=== PATIENT | male | born 1990 | race Caucasian/White ===

== ENCOUNTER 2017-10-06 07:20 | Outpatient (CLI) | payer BC ==
--- NOTE | 2017-10-06 10:11 | CT ---
CT ABDOMEN AND PELVIS WITH AND WITHOUT IV CONTRAST: (CT Enterography) Date: 10/06/17 HISTORY: Nausea, inflamed bowel seen on endoscopy, cystic fibrosis, history of partial pancreatectomy and sple nectomy, and questionable pancreatic jejunectomy. Chronic pancreatitis, nausea, and vomiting. FINDINGS: The lung bases are clear. The liver, adrenal glands, kidneys, and visualized portions of the pancreas are unremarkable. The pat ient is status post cholecystectomy, splenectomy and partial pancreatectomy. A circumaortic left shasta l vein is present. There are postop changes in the left jejunum with a dilated loop of jejunum in the left upper quadran t in the region of surgery. The remainder of the bowel loops are not abnormally dilated. A normal jacobo earing appendix is seen. No abnormal contrast enhancement or mass seen in the loops of small bowel. T he aorta is of normal caliber. No free air, free fluid, or lymphadenopathy seen in the abdomen or pel vis. No acute osseous abnormalities are identified. IMPRESSION: 1. No evidence of high grade bowel obstruction. 2. Postop changes in the abdomen. POS: MINNA
[2017-10-06] MEDS ORDERED: Iopamidol 370 76% 100 ML VIAL ONE (16:51)
== END 2017-10-06 07:21 | disposition home or self-care (01) ==
LOC: CT 07:20
PROVIDERS: ATTEND Internal Medicine
DX: K86.1 Other chronic pancreatitis (principal); R11.2 Nausea with vomiting, unspecified; Z98.890 Other specified postprocedural states
CPT/HCPCS: 74178

== ENCOUNTER 2019-12-14 12:11 | Inpatient (IN) | payer OTHER ==
[2019-12-14 12:46] LABS: #Basophils 0.1 thou/uL (0.0-0.2); #Eosinphils 0.1 thou/uL (0.0-0.7); #Lymphocytes 3.2 thou/uL (1.20-3.40); #Monocytes 1.3 thou/uL (0.11-0.59); #Neutrophils 11.8 thou/uL (1.40-6.50); %Basophils 0.6 % (0.0-1.0); %Eosinophils 0.6 % (0.0-10.0); %Lymphocytes 19.3 % (21.0-51.0); %Monocytes 7.9 % (0.0-10.0); %Neutrophils 71.6 % (42.0-75.0); Hemoglobin 15.3 g/dL (14.0-18.0); Mean Corpuscular HGB CONC 33.2 g/dL (32.0-36.0); Mean Corpuscular Hemoglobin 32.4 pg (27.0-31.0); Mean Corpuscular Volume 97.7 fL (78.0-98.0); Mean Platelet Volume 7.3 fL (7.4-10.4); Platelet Count 460 thou/uL (130-400); RBC Distribution Width 10.9 % (11.5-14.5); Red Blood Cell (RBC) Count 4.74 mill/uL (4.70-6.10); White Blood Cell (WBC) Count 16.4 thou/uL (4.8-10.8)
[2019-12-14] MEDS ORDERED: Fentanyl 100 MCG/2 ML VIAL ONE ×3 (12:55→17:14)
[2019-12-14] MEDS ORDERED: Ondansetron PF 4 MG/2 ML Vial ONE (12:55)
[2019-12-14 13:05] LABS: ALT (SGPT) 50 U/L (8-55); AST (SGOT) 20 U/L (5-34); Albumin 5.1 g/dL (3.5-5.0); Alkaline Phosphatase 82 U/L (40-110); Anion Gap 14 mmol/L (10-20); BUN (Urea Nitrogen) 12 mg/dL (8.9-20.6); Bilirubin, Total 1.4 mg/dL (0.2-1.2); Calc. Creatinine Clearance 0 mL/min (70-130); Calcium 10.4 mg/dL (7.8-10.44); Carbon Dioxide 28 mmol/L (22-29); Chloride 101 mmol/L (98-107); Estimated GFR-MDRD Greater than 90; Globulin 3.1 g/dL (2.4-3.5); Glucose 125 mg/dL (70-105); Lipase 69 U/L (8-78); Potassium 3.5 mmol/L (3.5-5.1); Protein, Total 8.2 g/dL (6.0-8.3); Sodium 139 mmol/L (136-145)
[2019-12-14] MEDS ORDERED: Promethazine HCl 25 MG/ML VIAL ONE (16:07)
[2019-12-14] MEDS ORDERED: Mag-Al 1200 mg/1200 mg/30 ML UDCUP ONE (16:20)
[2019-12-14] MEDS ORDERED: Lidocaine Viscous Sol 2% 15 ml UD Cup ONE (16:20)
[2019-12-14 17:36] LABS: Bilirubin Negative (Negative); Blood, Urine Negative (Negative); Clarity Clear (Clear); Glucose, Urine (Dipstick) Normal (Negative); Leukocyte Negative Leu/uL (Negative); Nitrite Negative (Negative); Protein, Urine (Dipstick) Negative (Neg-Trace); Urobilinogen Normal mg/dL (Less than 2)
--- NOTE | 2019-12-14 18:33 | PDOC.FPRHP ---
- History of Present Illness Chief Complaint: Abdominal pain History of Present Illness: 29 yo male with past medical history of cystic fibrosis and chronic pancreatitis presented to the emergency department with complaints of severe abdominal pain and nausea and vomiting. Patient stated that he has a history of chronic pancreatitis with greater than 20 episodes of acute pancreatitis in his past. He states the last time that he had an exacerbation of this was five years ago. Patient did have a puestow procedure performed several years ago. He states that last Wednesday he developed abdominal pain which was tolerable over the weekend however 4 days ago the abdominal pain became much worse. He contacted is GI doctor, Dr. Campbell, who stated that the patient should set up a office visit with him and go to the emergency department if it gets any worse. Last night patient stated that his abdominal pain got much worse and he was not able to tolerate any foods. Patient went to [facility] emergency department and had an abdominal CT performed which was negative for any acute abnormalities and a non elevated lipase. The patient received fluids and pain medication and was subsequently discharged. Patients pain was again worse today so he contacted Dr. Campbell who recommended he go to the emergency department here for further evaluation. Patient denies any fevers, chills, diarrhea, constipation. ED Course: Pt recieved 150mcg fentanyl, phenergan, and 2L NS - Allergies/Adverse Reactions Allergies Allergy/AdvReac Type Severity Reaction Status Date / Time adhesive Allergy Verified 12/14/19 21:35 morphine Allergy Nausea Verified 12/14/19 21:35 - Home Medications Medication Instructions Recorded Confirmed Type traMADol HCl [Tramadol HCl] 50 mg PO PRN PRN 12/15/19 12/15/19 History - History PMHx: Cystic Fibrosis, Chronic pancreatitis, common bile duct stenosis PSHx: Lateral pancreaticojejunostomy (Modified Puestow), cholecystectomy, spleenectomy, CBD stent FHx: No significant FMHx Social: Denies any tobacco, alcohol, or drug use - Review of Systems General: reports: weight/appetite/sleep changes. denies: fever/chills Eyes: denies: vision changes, other ENT: denies: nasal congestion, rhinorrhea Respiratory: denies: cough, shortness of breath Cardiovascular: denies: chest pain, edema Gastrointestinal: reports: nausea, vomiting, abdominal pain. denies: diarrhea, constipation Genitourinary: denies: dysuria, polyuria Skin: denies: rashes, lesions Musculoskeletal: reports: pain (back pain). denies: tenderness, swelling Neurological: denies: numbness, weakness - Vital signs BP: 135/92, Pulse: 80, Resp: 16, Temp: 98.0 (Oral), Pain: 5, O2 sat: 98 on ( Room Air), Wt: 80kg - Physical Exam Constitutional: NAD, awake, alert and oriented, well developed HEENT: PERRLA, EOMI, TM's clear and intact Neck: supple, FROM Heart: RRR, no edema Lungs: CTAB Abdomen: bowel sounds present, no masses/distention -Abdomen: Diffuse tenderness, worse in left upper and epigastric region Musculoskeletal: normal structure, normal tone Neurological: no focal deficit, CN II-XII intact Skin: no rash/lesions, capillary refill <2 seconds, no jaundice Heme/Lymphatic: no unusual bruising or bleeding, no purpura Psychiatric: normal mood and affect, good judgment and insight, intact recent and remote memory FMR H&P: Results - Labs Result Diagrams: 12/14/19 12:35 12/14/19 12:35 Lab results: WBC 16.4 thou/uL (4.8-10.8) H 12/14/19 12:35 Hgb 15.3 g/dL (14.0-18.0) 12/14/19 12:35 Hct 46.3 % (42.0-52.0) 12/14/19 12:35 MCV 97.7 fL (78.0-98.0) 12/14/19 12:35 Plt Count 460 thou/uL (130-400) H 12/14/19 12:35 Neutrophils % 71.6 % (42.0-75.0) 12/14/19 12:35 Sodium 139 mmol/L (136-145) 12/14/19 12:35 Potassium 3.5 mmol/L (3.5-5.1) 12/14/19 12:35 Chloride 101 mmol/L (98-107) 12/14/19 12:35 Carbon Dioxide 28 mmol/L (22-29) 12/14/19 12:35 BUN 12 mg/dL (8.9-20.6) 12/14/19 12:35 Creatinine 0.96 mg/dL (0.7-1.3) 12/14/19 12:35 Glucose 125 mg/dL (70-105) H 12/14/19 12:35 Calcium 10.4 mg/dL (7.8-10.44) 12/14/19 12:35 Total Bilirubin 1.4 mg/dL (0.2-1.2) H 12/14/19 12:35 AST 20 U/L (5-34) 12/14/19 12:35 ALT 50 U/L (8-55) 12/14/19 12:35 Alkaline Phosphatase 82 U/L (40-110) 12/14/19 12:35 Serum Total Protein 8.2 g/dL (6.0-8.3) 12/14/19 12:35 Albumin 5.1 g/dL (3.5-5.0) H 12/14/19 12:35 Lipase 69 U/L (8-78) 12/14/19 12:35 Urine Ketones 40 mg/dL (Negative) A 12/14/19 17:15 Urine Blood Negative (Negative) 12/14/19 17:15 Urine Nitrite Negative (Negative) 12/14/19 17:15 Ur Leukocyte Esterase Negative Adriana/uL (Negative) 12/14/19 17:15 FMR H&P: A/P - Problem List (1) Chronic pancreatitis Current Visit: Yes Status: Acute Code(s): K86.1 - OTHER CHRONIC PANCREATITIS Qualifiers: Pancreatitis type: other Qualified Code(s): K86.1 - Other chronic pancreatitis (2) Cystic fibrosis Current Visit: Yes Status: Acute Code(s): E84.9 - CYSTIC FIBROSIS, UNSPECIFIED (3) Hx of splenectomy Current Visit: Yes Status: Acute Code(s): Z90.81 - ACQUIRED ABSENCE OF SPLEEN (4) Intractable abdominal pain Current Visit: Yes Status: Acute Code(s): R10.9 - UNSPECIFIED ABDOMINAL PAIN (5) Nausea & vomiting Current Visit: Yes Status: Acute Code(s): R11.2 - NAUSEA WITH VOMITING, UNSPECIFIED (6) Thrombocytosis Current Visit: Yes Status: Acute Priority: Low (7) Leukocytosis Current Visit: Yes Status: Acute Code(s): D72.829 - ELEVATED WHITE BLOOD CELL COUNT, UNSPECIFIED - Plan Intractable Abdominal Pain & Nausea/Vomiting - Likely related to subclinical pancreatitis in pt w/ Hx of CF and chronic pancreatitis - Hx of Puestow procedure - Lipase 69, CT abd/pelvis @ [facility] negative for acute findings - Dr. Campbell, pt's GI physician consulted, appreciate recs - Will make NPO - tylenol, GI cocktail, and fentanyl for pain - phenergan and zofran for N/V - LR @ 150 Leukocytosis, Thrombocytosis - Hx of splenectomy - reportedly chronic per pt IVF: LR @ 150 Diet: NPO VTE: SCD and frequent ambulation Code: Full Dispo: Admit to medical inpt for pain control and PO challenging. ELOS >48hr PCP: [facility] specialist FMR H&P: Upper Level - Plan I, Lavelle Hurt DO, have evaluated this patient and agree with findings/plan as outlined by product development intern resident. Pertinent changes/additions are listed here. mr. street is a 29-year-old male with a past medical history significant for cystic fibrosis and chronic pancreatitis. He presents to the emergency room today after a visit to the outside emergency room, [facility] for abdominal pain that has been worsening. He says the pain is similar to pain he has had in the past with the pancreatitis episodes. follows with John campbell who told him to report to [place] ER. In the emergency department he was given fentanyl which improved his pain greatly. dr. campbell was consulted from the emergency department and wished the patient be admitted. On time of exam patient is experiencing minimal pain and denies nausea vomiting pre-syncope or fever. Physical exam patient is in no acute distress he has some mild tenderness to palpation over his epigastric area, moves all four extremities no distention or masses felt on abdominal exam, regular rate and rhythm even Chest will rise and fall. Plan: patient to be admitted to medical for for acute pancreatitis in the setting of chronic pancreatitis. pain control, NPO at this time with advance diet as tolerated Addendum - Attending - Attending Attestation Date/Time: 12/14/19 8380 I personally evaluated the patient and discussed the management with Dr. Dale I agree with the History, Examination, Assessment and Plan documented above with any addition or exceptions noted below -29 yo male with past medical history of cystic fibrosis and chronic pancreatitis presented to the emergency department with complaints of severe abdominal pain and nausea and vomiting. Has a history of chronic pancreatitis with greater than 20 episodes of acute pancreatitis in his past. Last episode was five years ago. Patient did have a puestow procedure performed several years ago. Developed abdominal pain which was tolerable over the weekend however 4 days ago the abdominal pain became much worse. Last night patient stated that his abdominal pain got much worse and he was not able to tolerate any foods. Patient went to [facility] emergency department and had an abdominal CT performed which was negative for any acute abnormalities and a non elevated lipase. The patient received fluids and pain medication and was subsequently discharged. Patients pain was again worse today so he contacted Dr. Campbell who recommended he go to the emergency department here for further evaluation. Patient denies any fevers, chills, diarrhea, constipation. PMH/PSH/Meds/SH reviewed and agree with resident's documentation. Afebrile VSS Exam repeated by me and agree with resident's findings. Labs: WBC= 16.4, H/H=15.3/46.3, Tsc=992, Qw=608, K=3.5, BUN/Cr=12/0.96 , Hwjw=517, lipase=69. A/P: 1) Abd Pain and intractable N/V- suspected pancreatitis - Admit to medical. Continue IVF, NPO. GI already consulted and will see patient. 2) CF- stable
[2019-12-14] MEDS ORDERED: Sodium Chloride 0.9% 1,000 ML IV SCH (19:07)
[2019-12-14] MEDS ORDERED: Ondansetron ODT 4 MG TAB SL PRN (19:07)
[2019-12-14] MEDS ORDERED: Fentanyl 100 MCG/2 ML VIAL SLOW IVP PRN ×2 (19:07→19:48)
[2019-12-14] MEDS ORDERED: Ondansetron PF 4 MG/2 ML Vial IVP PRN (19:07)
[2019-12-14] MEDS ORDERED: Acetaminophen 325 MG TAB PO PRN (19:48)
[2019-12-14] MEDS ORDERED: Lidocaine 2% Viscous Solution 20 ML, Aluminum & Magnesium Hydroxide 30 ML, Donnatal Eli... SSW PRN (19:48)
[2019-12-14] MEDS ORDERED: Promethazine HCl 25 MG/ML VIAL IM PRN (19:48)
[2019-12-14] MEDS: Lactated Ringer's 1,000 ML IV SCH (20:15)
[2019-12-14] MEDS: Fentanyl 100 MCG/2 ML VIAL SLOW IVP PRN (20:42)
[2019-12-14 21:15] VITALS: BMI 22.9
[2019-12-14] MEDS ORDERED: Ketorolac Tromethamine 30 MG/ML VIAL IVP SCH (23:15)
[2019-12-15] MEDS: Fentanyl 100 MCG/2 ML VIAL SLOW IVP PRN ×8 (03:03→22:00)
[2019-12-15] MEDS: Lactated Ringer's 1,000 ML IV SCH ×4 (03:07→22:08)
[2019-12-15 05:47] LABS: #Eosinphils 0.1 thou/uL (0.0-0.7); #Lymphocytes 3.2 thou/uL (1.20-3.40); #Monocytes 1.4 thou/uL (0.11-0.59); %Basophils 0.4 % (0.0-1.0); %Eosinophils 0.9 % (0.0-10.0); %Lymphocytes 24.9 % (21.0-51.0); %Monocytes 11.2 % (0.0-10.0); %Neutrophils 62.6 % (42.0-75.0); Hemoglobin 13.2 g/dL (14.0-18.0); Mean Corpuscular HGB CONC 33.4 g/dL (32.0-36.0); Mean Corpuscular Hemoglobin 32.9 pg (27.0-31.0); Mean Corpuscular Volume 98.6 fL (78.0-98.0); Mean Platelet Volume 7.4 fL (7.4-10.4); Platelet Count 400 thou/uL (130-400); RBC Distribution Width 10.8 % (11.5-14.5); Red Blood Cell (RBC) Count 4.02 mill/uL (4.70-6.10); White Blood Cell (WBC) Count 12.8 thou/uL (4.8-10.8)
--- NOTE | 2019-12-15 07:58 | PDOC.FM ---
- Subjective Subjective: Pt c/o Pain in the upper abdomen. Denies continued N/V since early this AM. - Objective MAR Reviewed: Yes Vital Signs & Weight: Vital Signs (12 hours) Temp Pulse Resp BP BP Pulse Ox 12/15/19 07:17 98.5 F 78 16 126/77 96 12/15/19 05:00 98.4 F 92 20 127/75 95 12/15/19 03:23 98.1 F 74 17 134/82 95 12/14/19 23:21 98.8 F 75 17 149/98 H 98 Weight Weight 81.193 kg I&O: 12/14/19 12/15/19 12/16/19 06:59 06:59 06:59 Intake Total 1480 Balance 1480 Result Diagrams: 12/15/19 05:27 12/14/19 12:35 Phys Exam - Physical Examination Constitutional: NAD HEENT: moist MMs Neck: no nodes, supple Respiratory: no wheezing, no rales, no rhonchi, clear to auscultation bilateral Cardiovascular: RRR, no significant murmur Gastrointestinal: soft, no distention, positive bowel sounds upper abd ttp Musculoskeletal: no edema, pulses present Neurological: non-focal, moves all 4 limbs Psychiatric: normal affect, A&O x 3 Skin: no rash, normal turgor, cap refill <2 seconds Dx/Plan (1) Chronic pancreatitis Code(s): K86.1 - OTHER CHRONIC PANCREATITIS Status: Acute Qualifiers: Pancreatitis type: other Qualified Code(s): K86.1 - Other chronic pancreatitis (2) Cystic fibrosis Code(s): E84.9 - CYSTIC FIBROSIS, UNSPECIFIED Status: Acute (3) Hx of splenectomy Code(s): Z90.81 - ACQUIRED ABSENCE OF SPLEEN Status: Acute (4) Intractable abdominal pain Code(s): R10.9 - UNSPECIFIED ABDOMINAL PAIN Status: Acute (5) Leukocytosis Code(s): D72.829 - ELEVATED WHITE BLOOD CELL COUNT, UNSPECIFIED Status: Acute (6) Nausea & vomiting Code(s): R11.2 - NAUSEA WITH VOMITING, UNSPECIFIED Status: Acute (7) Thrombocytosis Status: Resolved - Plan Plan: Intractable Abdominal Pain & Nausea/Vomiting - Likely related to subclinical pancreatitis in pt w/ Hx of CF and chronic pancreatitis - Hx of Puestow procedure - Lipase 69, CT abd/pelvis @ [facility] negative for acute findings - Dr. Cole, pt's GI physician consulted, appreciate recs - Will make NPO - tylenol, GI cocktail, and fentanyl for pain - phenergan and zofran for N/V - LR @ 150 Hx of chronic pancreatitis - GI consult, appreciate recs. Dr. Cole follows patient. - hx of partial pancreas surgically removed. Leukocytosis, Thrombocytosis - improving - Hx of splenectomy - reportedly chronic per pt Hx of Cystic Fibrosis - denies fever or cough IVF: LR @ 150 Diet: NPO VTE: SCD and frequent ambulation Code: Full Dispo: Admit to medical inpt for pain control and PO challenging. ELOS >48hr PCP: [facility] specialist Addendum - Attending - Attending Attestation Date/Time: 12/15/19 1257 I personally evaluated the patient and discussed the management with Dr. Luna. I agree with the History, Examination, Assessment and Plan documented above with any addition or exceptions noted below. adjusting pain medications. Awaiting GI recs. continue NPO status.
[2019-12-15] MEDS ORDERED: Fentanyl 100 MCG/2 ML VIAL SLOW IVP SCH (08:32)
[2019-12-15 09:14] LABS: ALT (SGPT) 35 U/L (8-55); AST (SGOT) 16 U/L (5-34); Albumin 4.1 g/dL (3.5-5.0); Alkaline Phosphatase 72 U/L (40-110); Bilirubin, Direct 0.5 mg/dL (0.1-0.3); Bilirubin, Total 1.4 mg/dL (0.2-1.2); Lipase 21 U/L (8-78); Protein, Total 6.7 g/dL (6.0-8.3)
[2019-12-15] MEDS: Ondansetron ODT 4 MG TAB PO PRN ×2 (15:04→20:58)
[2019-12-15] MEDS: Amitriptyline HCl 10 MG TAB PO SCH (21:29)
[2019-12-15] MEDS: Promethazine HCl 12.5 MG in Sodium Chloride 0.9% 50 ML IVPB PRN (21:29)
--- NOTE | 2019-12-15 23:50 | CON ---
DATE OF CONSULTATION: 12/15/2019 CHIEF COMPLAINT: Abdominal pain. HISTORY OF PRESENT ILLNESS: Mr. Benito is a 29-year-old man with a history of chronic pancreatitis secondary to cystic fibrosis. He reports a dull aching pain in the left upper quadrant that started one week ago last Wednesday. The pain suddenly intensified a couple of days ago. He went to the emergency room and then followed up in the GI Clinic and then went back to the emergency room at [facility] and then followed back up in GI clinic yesterday. He has been following with Dr. Cole. The patient had chronic pancreatitis or recurrent pancreatitis starting in his teens and he underwent multiple biliary or pancreatic stents until finally he ultimately underwent distal pancreatectomy and splenectomy and pancreaticojejunostomy. He did well for a few years after that and then in 2018 he presented with abdominal pain and he underwent upper endoscopy by Dr. Cole, which showed some gastritis and duodenitis with normal biopsies from the duodenum and stomach. He is still having ongoing pain and has required IV morphine. [id number] oral medications have been inadequate and he was admitted last night and given IV opioids. His last bowel movement was on Wednesday 3 days ago. He states his stool was formed and brown at that time. He has had some loose stools intermittently prior to that, but overall has done well without pancreatic enzyme supplementations longer term. He has not had problems with diabetes. He has had no blood in the stool. He has some nausea, but no vomiting. PAST MEDICAL HISTORY: Cystic fibrosis complicated by pancreatitis, but no significant pulmonary illness. PAST SURGICAL HISTORY: Cholecystectomy around age 16. Later, he had distal pancreatectomy with splenectomy and pancreaticojejunostomy with the proximal pancreas. FAMILY HISTORY: Negative for GI malignancy. His grandmother had what his mother described a small cell cancer of the colon or rectum. HABITS: No alcohol, tobacco, or drugs. ALLERGIES: NO KNOWN DRUG ALLERGIES. MEDICATIONS: Prior to admission, none. REVIEW OF SYSTEMS: Negative x10 systems reviewed except as stated in the history of present illness. LABORATORY DATA: White blood cell count 12.8, hemoglobin 13.2, platelets 400. Bilirubin 1.4, AST 16, ALT 35, alkaline phosphatase 72, lipase 21. His direct bilirubin is 0.5. He had a CT scan in the [facility] ER 2 nights ago of the abdomen and pelvis with contrast. This apparently showed postsurgical changes, but no acute abnormalities. Pancreatic parenchyma appeared unremarkable without stranding or inflammatory changes. IMPRESSION: Exacerbation acutely of chronic pancreatitis. This is a mild episode without evidence of secondary organ failure. His lipase is normal and he has no inflammatory changes by CT scan. I still would favor pancreatitis as most likely cause of his symptoms with the left upper quadrant epigastric abdominal pain radiating through to his back. He does not have evidence of significant constipation leading to this. He could have a peptic ulcer and if his pain fails to improve, then we can consider upper endoscopy. He did have an upper endoscopy in [address] scan was reportedly otherwise negative. His pain has not been controlled with tramadol at home by mouth and he is requiring now inpatient care for IV pain control and fluids. RECOMMENDATIONS: 1. Continue supportive care with fluids and pain medication. 2. Advanced his diet once he is able to tolerate and willing to give a trial for clear liquids. 3. Proton pump inhibitor. 4. I expect this will just take a couple of more days with supportive care for acute flare of chronic pancreatitis. Job ID: [id number]
[2019-12-16] MEDS: Fentanyl 100 MCG/2 ML VIAL SLOW IVP PRN ×11 (01:31→22:19)
[2019-12-16] MEDS: Lactated Ringer's 1,000 ML IV SCH ×4 (03:39→22:37)
[2019-12-16] MEDS: Ondansetron ODT 4 MG TAB PO PRN ×3 (06:09→18:14)
--- NOTE | 2019-12-16 07:00 | PDOC.FM ---
- Subjective Subjective: Pt states he is feeling better. States pain is being controlled, but still slightly sore feeling in his upper abdomen. Denies further n/v. VVS. No acute overnight events. - Objective MAR Reviewed: Yes Vital Signs & Weight: Vital Signs (12 hours) Temp Pulse Resp BP Pulse Ox 12/16/19 03:40 98.8 F 88 18 140/78 98 12/15/19 19:40 97 12/15/19 19:07 98.4 F 87 16 135/78 97 Weight Admit Weight 81.193 kg Weight 81.193 kg I&O: 12/14/19 12/15/19 12/16/19 06:59 06:59 06:59 Intake Total 1480 3930 Balance 1480 3930 Result Diagrams: 12/16/19 07:12 12/16/19 07:08 Phys Exam - Physical Examination Constitutional: NAD HEENT: moist MMs, sclera anicteric Neck: no nodes, supple, full ROM Respiratory: no wheezing, no rales, no rhonchi, clear to auscultation bilateral Cardiovascular: RRR, no significant murmur, no rub Gastrointestinal: soft, no distention, positive bowel sounds slight TTP upper abdomen Musculoskeletal: no edema, pulses present Neurological: non-focal, moves all 4 limbs Psychiatric: normal affect, A&O x 3 Skin: no rash, normal turgor, cap refill <2 seconds Dx/Plan (1) Chronic pancreatitis Code(s): K86.1 - OTHER CHRONIC PANCREATITIS Status: Acute Qualifiers: Pancreatitis type: other Qualified Code(s): K86.1 - Other chronic pancreatitis (2) Cystic fibrosis Code(s): E84.9 - CYSTIC FIBROSIS, UNSPECIFIED Status: Acute (3) Hx of splenectomy Code(s): Z90.81 - ACQUIRED ABSENCE OF SPLEEN Status: Acute (4) Intractable abdominal pain Code(s): R10.9 - UNSPECIFIED ABDOMINAL PAIN Status: Acute (5) Leukocytosis Code(s): D72.829 - ELEVATED WHITE BLOOD CELL COUNT, UNSPECIFIED Status: Acute (6) Nausea & vomiting Code(s): R11.2 - NAUSEA WITH VOMITING, UNSPECIFIED Status: Acute (7) Thrombocytosis Status: Resolved - Plan Plan: Intractable Abdominal Pain & Nausea/Vomiting, improving - Likely related to subclinical pancreatitis in pt w/ Hx of CF and chronic pancreatitis - Hx of Puestow procedure - Lipase 69-> 21, CT abd/pelvis @ [facility] negative for acute findings report requested. - Dr. Cole, pt's GI physician consulted, appreciate recs - NPO 12/14. Advancing to ice chips morning of 12/15 and clears if tolerated. - fentanyl for pain - phenergan and zofran for N/V - LR @ 150 - BISAP score: 0 Hx of chronic pancreatitis - GI consult, appreciate recs. Dr. Cole follows patient. - hx of partial pancreas surgically removed. Leukocytosis, Thrombocytosis - improving - Hx of splenectomy - reportedly chronic per pt Hx of Cystic Fibrosis - denies fever or cough IVF: LR @ 150 Diet: ice chips, and then advance if tolerated. VTE: SCD and frequent ambulation Code: Full Dispo: Admit to medical inpt for pain control IVF. LOS >48hr PCP: [facility] specialist Addendum - Attending - Attending Attestation Date/Time: 12/16/19 7102 I personally evaluated the patient and discussed the management with Dr. Luna. I agree with the History, Examination, Assessment and Plan documented above with any addition or exceptions noted below. Protonix added per GI. Had some pain with CL diet. will make NPO again and attempt to feed again tomorrow. pain better controlled today.
[2019-12-16 07:41] LABS: ALT (SGPT) 29 U/L (8-55); AST (SGOT) 13 U/L (5-34); Albumin 4.1 g/dL (3.5-5.0); Alkaline Phosphatase 74 U/L (40-110); Anion Gap 17 mmol/L (10-20); BUN (Urea Nitrogen) 6 mg/dL (8.9-20.6); Bilirubin, Total 1.1 mg/dL (0.2-1.2); Calc. Creatinine Clearance 154 mL/min (70-130); Calcium 9.1 mg/dL (7.8-10.44); Carbon Dioxide 20 mmol/L (22-29); Chloride 101 mmol/L (98-107); Estimated GFR-MDRD Greater than 90; Globulin 2.7 g/dL (2.4-3.5); Glucose 71 mg/dL (70-105); Potassium 4.2 mmol/L (3.5-5.1); Protein, Total 6.8 g/dL (6.0-8.3); Sodium 134 mmol/L (136-145)
[2019-12-16 07:46] LABS: Eosinophils 1 % (0-10); Hemoglobin 13.9 g/dL (14.0-18.0); Lymphocytes 8 % (21-51); MDiff Complete? YES; Mean Corpuscular HGB CONC 33.2 g/dL (32.0-36.0); Mean Corpuscular Hemoglobin 32.3 pg (27.0-31.0); Mean Corpuscular Volume 97.4 fL (78.0-98.0); Mean Platelet Volume 7.4 fL (7.4-10.4); Monocytes 7 % (0-10); Neutrophil 84 % (42-75); Platelet Count 396 thou/uL (130-400); RBC Distribution Width 10.8 % (11.5-14.5); White Blood Cell (WBC) Count 20.8 thou/uL (4.8-10.8)
--- NOTE | 2019-12-16 15:46 | PRG ---
DATE OF SERVICE: 12/16/2019 SUBJECTIVE: Mr. Benito is feeling a bit better today. He is tolerating small amounts of clear liquids, but he is still having some cramping epigastric pain. Overall, his pain is significantly better than it was yesterday. No nausea or vomiting. No bowel movement today. PHYSICAL EXAMINATION: VITAL SIGNS: Temperature is 98.4, pulse 92, blood pressure 122/64. GENERAL: He is in no acute distress. He is alert and oriented x3. HEENT: Eyes have no scleral icterus. Oropharynx is clear without lesions. No cervical or supraclavicular lymphadenopathy. LUNGS: Clear to auscultation bilaterally. HEART: Regular rate and rhythm without murmur. ABDOMEN: Soft. Mild tenderness in the epigastric region without guarding. Bowel sounds are present. EXTREMITIES: No lower extremity edema. LABORATORY DATA: White blood cell count 20.8, hemoglobin 13.9, platelets 396. Creatinine 0.82. Bilirubin 1.1, AST 13, ALT 29, alkaline phosphatase 74, lipase 21. IMPRESSION: 1. Left upper quadrant epigastric abdominal pain. I suspect this is due to an acute on chronic pancreatitis, which overall is mild without secondary organ failure. CT did not show obvious inflammatory changes, and his pancreatic enzymes have been normal. His symptoms have improved now with fluids and pain control. 2. Leukocytosis. His white blood cell count has jumped up to 20.8. It was 16 a couple of days ago. I do not know what the source for this leukocytosis is; however, symptomatically, he is significantly improved and he remains afebrile. No abscess or surgical complication was apparent by CT scan. We will continue to follow the trend of this. RECOMMENDATIONS: 1. Advance his diet tomorrow to a low-fat diet if he is continuing to improve clinically. 2. Recheck his white blood cell count tomorrow morning. Job ID: [id number]
[2019-12-16] MEDS: Amitriptyline HCl 10 MG TAB PO SCH (20:19)
[2019-12-16] MEDS: Promethazine HCl 12.5 MG in Sodium Chloride 0.9% 50 ML IVPB PRN (23:16)
[2019-12-17] MEDS: Fentanyl 100 MCG/2 ML VIAL SLOW IVP PRN ×10 (00:17→21:58)
[2019-12-17] MEDS: Lactated Ringer's 1,000 ML IV SCH ×4 (05:15→18:07)
[2019-12-17 05:32] LABS: Hemoglobin 13.7 g/dL (14.0-18.0); Mean Corpuscular HGB CONC 32.2 g/dL (32.0-36.0); Mean Corpuscular Hemoglobin 31.7 pg (27.0-31.0); Mean Corpuscular Volume 98.4 fL (78.0-98.0); Mean Platelet Volume 7.8 fL (7.4-10.4); Platelet Count 384 thou/uL (130-400); RBC Distribution Width 10.9 % (11.5-14.5); Red Blood Cell (RBC) Count 4.33 mill/uL (4.70-6.10); White Blood Cell (WBC) Count 17.1 thou/uL (4.8-10.8)
[2019-12-17 05:47] LABS: ALT (SGPT) 25 U/L (8-55); AST (SGOT) 11 U/L (5-34); Alkaline Phosphatase 70 U/L (40-110); Anion Gap 18 mmol/L (10-20); BUN (Urea Nitrogen) 4 mg/dL (8.9-20.6); Calc. Creatinine Clearance 164 mL/min (70-130); Calcium 9.1 mg/dL (7.8-10.44); Carbon Dioxide 20 mmol/L (22-29); Chloride 101 mmol/L (98-107); Estimated GFR-MDRD Greater than 90; Globulin 2.7 g/dL (2.4-3.5); Glucose 83 mg/dL (70-105); Potassium 3.7 mmol/L (3.5-5.1); Protein, Total 6.7 g/dL (6.0-8.3); Sodium 135 mmol/L (136-145)
[2019-12-17 05:57] LABS: Band 3 % (5-11); Lymphocytes 19 % (21-51); MDiff Complete? YES; Monocytes 9 % (0-10); Neutrophil 69 % (42-75)
--- NOTE | 2019-12-17 07:35 | PDOC.FM ---
- Subjective Subjective: Pt states he has mod upper abd pain. Tolerated jello, but ti does make his stomach, "grumble." Pt has lasted 4 hours without IV fentanyl. slight N, denies V. - Objective MAR Reviewed: Yes Vital Signs & Weight: Vital Signs (12 hours) Temp Pulse Resp BP Pulse Ox 12/17/19 07:07 98.6 F 93 16 137/83 96 12/17/19 00:00 98.7 F 92 18 134/80 95 Weight Admit Weight 81.193 kg Weight 81.193 kg I&O: 12/16/19 12/17/19 12/18/19 06:59 06:59 06:59 Intake Total 3930 Balance 3930 Result Diagrams: 12/17/19 05:12 12/17/19 05:12 Phys Exam - Physical Examination Constitutional: NAD HEENT: moist MMs, sclera anicteric Neck: supple, full ROM Respiratory: no wheezing, no rales, no rhonchi, clear to auscultation bilateral Cardiovascular: RRR, no rub Gastrointestinal: soft, no distention LUQ abd TTP Musculoskeletal: no edema, pulses present Neurological: non-focal, moves all 4 limbs Psychiatric: normal affect, A&O x 3 Skin: no rash, normal turgor Dx/Plan (1) Chronic pancreatitis Code(s): K86.1 - OTHER CHRONIC PANCREATITIS Status: Acute Qualifiers: Pancreatitis type: other Qualified Code(s): K86.1 - Other chronic pancreatitis (2) Cystic fibrosis Code(s): E84.9 - CYSTIC FIBROSIS, UNSPECIFIED Status: Acute (3) Hx of splenectomy Code(s): Z90.81 - ACQUIRED ABSENCE OF SPLEEN Status: Acute (4) Intractable abdominal pain Code(s): R10.9 - UNSPECIFIED ABDOMINAL PAIN Status: Acute (5) Leukocytosis Code(s): D72.829 - ELEVATED WHITE BLOOD CELL COUNT, UNSPECIFIED Status: Acute (6) Nausea & vomiting Code(s): R11.2 - NAUSEA WITH VOMITING, UNSPECIFIED Status: Acute (7) Thrombocytosis Status: Resolved - Plan Plan: Intractable Abdominal Pain & Nausea/Vomiting, improving - Likely related to subclinical pancreatitis in pt w/ Hx of CF and chronic pancreatitis - Hx of [place] procedure - Lipase 69-> 21, CT abd/pelvis @ [facility] negative for acute findings report requested. - Dr. Cole, pt's GI physician consulted, appreciate recs - NPO 12/14. Advancing to ice chips morning of 12/15 and clears if tolerated. Pt tolerates jello with slight discomfort. Advance as tolerated. - fentanyl for pain - phenergan and zofran for N/V - LR @ 150 - BISAP score: 0 Hx of chronic pancreatitis - GI consult, appreciate recs. Dr. Cole follows patient. - hx of partial pancreas surgically removed. - added PPI therapy Leukocytosis, Thrombocytosis - improving - Hx of splenectomy - reportedly chronic per pt Hx of Cystic Fibrosis - denies fever or cough IVF: LR @ 150 Diet: advance as tolerated. VTE: SCD and frequent ambulation Code: Full Dispo: Admit to medical inpt for pain control IVF. LOS >48hr PCP: [facility] Addendum - Attending - Attending Attestation Date/Time: 12/17/19 5451 I personally evaluated the patient and discussed the management with Dr. Luna. I agree with the History, Examination, Assessment and Plan documented above with any addition or exceptions noted below. He was able to tolerate some jello this morning with minimal discomfort. Will slowly start advancing diet. Likely needs 1-2 more days in hospital.
[2019-12-17] MEDS: Ondansetron ODT 4 MG TAB PO PRN (13:13)
--- NOTE | 2019-12-17 16:03 | PRG ---
DATE OF SERVICE: 12/17/2019 SUBJECTIVE: Mr. Benito continues to feel better today than he did yesterday. He did have some pain last night. He is tolerating clear liquids well. OBJECTIVE: VITAL SIGNS: Temperature 98.6, pulse 93, blood pressure 137/83. GENERAL: He is in no acute distress. Alert and oriented x3. LUNGS: Clear to auscultation bilaterally. HEART: Regular rate and rhythm without murmur. ABDOMEN: Soft. Minimal tenderness in the left upper abdomen without guarding. Bowel sounds are present. EXTREMITIES: No lower extremity edema. LABORATORY DATA: White blood cell count 17.1, hemoglobin 13.7, platelets 384. Creatinine 0.77. IMPRESSION: 1. Left upper quadrant abdominal pain, most likely secondary to a mild acute flare of chronic pancreatitis. 2. History of chronic pancreatitis secondary to cystic fibrosis. He has undergone prior distal pancreatectomy and splenectomy and pancreaticojejunostomy. 3. Leukocytosis. The cause of this is not clear to me, however, reportedly this is chronic. RECOMMENDATIONS: Advance to a low-fat diet today. Job ID: [id number]
[2019-12-17] MEDS: Amitriptyline HCl 10 MG TAB PO SCH (22:07)
[2019-12-18] MEDS: Lactated Ringer's 1,000 ML IV SCH ×5 (00:09→20:15)
[2019-12-18] MEDS: Fentanyl 100 MCG/2 ML VIAL SLOW IVP PRN ×5 (00:10→10:28)
[2019-12-18 06:02] LABS: ALT (SGPT) 21 U/L (8-55); AST (SGOT) 12 U/L (5-34); Albumin 3.8 g/dL (3.5-5.0); Alkaline Phosphatase 71 U/L (40-110); Anion Gap 15 mmol/L (10-20); BUN (Urea Nitrogen) 4 mg/dL (8.9-20.6); Bilirubin, Total 0.8 mg/dL (0.2-1.2); Calc. Creatinine Clearance 162 mL/min (70-130); Carbon Dioxide 26 mmol/L (22-29); Chloride 100 mmol/L (98-107); Estimated GFR-MDRD Greater than 90; Globulin 2.8 g/dL (2.4-3.5); Glucose 87 mg/dL (70-105); Potassium 3.8 mmol/L (3.5-5.1); Protein, Total 6.6 g/dL (6.0-8.3); Sodium 137 mmol/L (136-145)
[2019-12-18 06:17] LABS: Hemoglobin 13.1 g/dL (14.0-18.0); Mean Corpuscular HGB CONC 33.5 g/dL (32.0-36.0); Mean Corpuscular Hemoglobin 32.5 pg (27.0-31.0); Mean Corpuscular Volume 97.1 fL (78.0-98.0); Mean Platelet Volume 7.4 fL (7.4-10.4); Platelet Count 405 thou/uL (130-400); RBC Distribution Width 10.7 % (11.5-14.5); Red Blood Cell (RBC) Count 4.04 mill/uL (4.70-6.10); White Blood Cell (WBC) Count 13.9 thou/uL (4.8-10.8)
[2019-12-18 07:01] LABS: Band 4 % (5-11); Eosinophils 2 % (0-10); Lymphocytes 27 % (21-51); MDiff Complete? YES; Monocytes 15 % (0-10); Neutrophil 52 % (42-75)
--- NOTE | 2019-12-18 10:22 | PDOC.FM ---
- Subjective Subjective: Pt reports improved abd pain, nausea and vomiting. He is now tolerating fat restricted diet. No new complaints. - Objective Vital Signs & Weight: Vital Signs (12 hours) Temp Pulse Resp BP BP Pulse Ox 12/18/19 07:44 94 L 12/18/19 07:22 98.7 F 96 18 144/97 H 94 L 12/18/19 04:00 97.7 F 89 18 115/72 95 12/18/19 00:00 99.5 F 100 18 131/78 96 Weight Admit Weight 81.193 kg Weight 81.193 kg I&O: 12/17/19 12/18/19 12/19/19 06:59 06:59 06:59 Intake Total 2040 Output Total 850 Balance 1190 Result Diagrams: 12/18/19 05:21 12/18/19 05:21 Phys Exam - Physical Examination Constitutional: NAD HEENT: moist MMs, sclera anicteric Neck: full ROM Respiratory: no wheezing, clear to auscultation bilateral Cardiovascular: RRR, no significant murmur Gastrointestinal: soft, non-tender Musculoskeletal: pulses present Neurological: normal sensation, moves all 4 limbs Psychiatric: normal affect, A&O x 3 Skin: no rash, normal turgor Dx/Plan (1) Chronic pancreatitis Code(s): K86.1 - OTHER CHRONIC PANCREATITIS Status: Acute Qualifiers: Pancreatitis type: other Qualified Code(s): K86.1 - Other chronic pancreatitis (2) Cystic fibrosis Code(s): E84.9 - CYSTIC FIBROSIS, UNSPECIFIED Status: Acute (3) Hx of splenectomy Code(s): Z90.81 - ACQUIRED ABSENCE OF SPLEEN Status: Acute (4) Intractable abdominal pain Code(s): R10.9 - UNSPECIFIED ABDOMINAL PAIN Status: Acute (5) Nausea & vomiting Code(s): R11.2 - NAUSEA WITH VOMITING, UNSPECIFIED Status: Acute - Plan Plan: Intractable Abdominal Pain & Nausea/Vomiting, improving A- Improved, tolerating low fat diet. Likely related to subclinical pancreatitis in pt w/ Hx of CF and chronic pancreatitis. Hx of [place] procedure. Lipase 69-> 21, CT abd/pelvis @ [facility] negative for acute findings report requested. Dr. Cole, pt's GI physician consulted, appreciate recs P- will wean fentanyl - phenergan and zofran for N/V - LR @ 150 - f/u GI recs Hx of chronic pancreatitis -GI consult, appreciate recs. Dr. Cole follows patient. hx of partial pancreas surgically removed. added PPI therapy Leukocytosis, Thrombocytosis - improving -Hx of splenectomy - reportedly chronic per pt. Improving. Hx of Cystic Fibrosis -denies fever or cough IVF: LR @ 150 Diet: low fat VTE: SCD and frequent ambulation Code: Full Dispo: per GI, will need to wean opiates before DC PCP: [facility] Addendum - Attending - Attending Attestation Date/Time: 12/18/19 1220 I personally evaluated the patient and discussed the management with Dr. Hodgson. I agree with the History, Examination, Assessment and Plan documented above with any addition or exceptions noted below. Patient doing well. Escalating diet per GI. Will work on transitioning to PO pain control. Hopeful home in next 1-2 days. ADAT.
[2019-12-18] MEDS ORDERED: Acetaminophen 500 MG TAB PO PRN (12:25)
[2019-12-18] MEDS ORDERED: Ibuprofen 600 MG TAB PO PRN (12:25)
[2019-12-18] MEDS: traMADol HCl 50 MG TAB PO PRN (18:13)
[2019-12-18] MEDS: Amitriptyline HCl 10 MG TAB PO SCH (20:15)
[2019-12-19] MEDS: Lactated Ringer's 1,000 ML IV SCH (03:05)
[2019-12-19] MEDS: traMADol HCl 50 MG TAB PO PRN (03:08)
[2019-12-19 06:01] LABS: Hemoglobin 12.9 g/dL (14.0-18.0); Mean Corpuscular HGB CONC 33.2 g/dL (32.0-36.0); Mean Corpuscular Hemoglobin 32.7 pg (27.0-31.0); Mean Corpuscular Volume 98.5 fL (78.0-98.0); Mean Platelet Volume 7.9 fL (7.4-10.4); Platelet Count 434 thou/uL (130-400); RBC Distribution Width 10.8 % (11.5-14.5); Red Blood Cell (RBC) Count 3.95 mill/uL (4.70-6.10); White Blood Cell (WBC) Count 8.2 thou/uL (4.8-10.8)
[2019-12-19 06:24] LABS: Eosinophils 4 % (0-10); Lymphocytes 35 % (21-51); MDiff Complete? YES; Monocytes 15 % (0-10); Neutrophil 45 % (42-75); Reactive Lymphocytes 1 % (0-10)
[2019-12-19 06:25] LABS: ALT (SGPT) 22 U/L (8-55); AST (SGOT) 14 U/L (5-34); Albumin 3.6 g/dL (3.5-5.0); Alkaline Phosphatase 63 U/L (40-110); Anion Gap 11 mmol/L (10-20); BUN (Urea Nitrogen) 5 mg/dL (8.9-20.6); Bilirubin, Total 0.4 mg/dL (0.2-1.2); Calc. Creatinine Clearance 164 mL/min (70-130); Calcium 9.1 mg/dL (7.8-10.44); Carbon Dioxide 28 mmol/L (22-29); Chloride 103 mmol/L (98-107); Estimated GFR-MDRD Greater than 90; Globulin 2.6 g/dL (2.4-3.5); Glucose 89 mg/dL (70-105); Potassium 3.6 mmol/L (3.5-5.1); Protein, Total 6.2 g/dL (6.0-8.3); Sodium 138 mmol/L (136-145)
[2019-12-19 08:27] VITALS: BP 145/74; TEMP 98.3
--- NOTE | 2019-12-19 08:37 | PDOC.FM ---
- Subjective Subjective: Pt doing well, abd pain is controlled with tramadol. nausea/vomiting resolved. Feels well enough to go home. - Objective Vital Signs & Weight: Vital Signs (12 hours) Temp Pulse Resp BP Pulse Ox 12/19/19 07:50 98.3 F 74 16 145/74 H 95 Weight Admit Weight 81.193 kg Weight 81.193 kg I&O: 12/18/19 12/19/19 12/20/19 06:59 06:59 06:59 Intake Total 2040 4750 Output Total 850 3400 Balance 1190 1350 Result Diagrams: 12/19/19 05:10 12/19/19 05:10 Phys Exam - Physical Examination Constitutional: NAD HEENT: moist MMs, sclera anicteric Neck: supple, full ROM Respiratory: no wheezing, clear to auscultation bilateral Cardiovascular: RRR, no significant murmur Gastrointestinal: soft, non-tender Musculoskeletal: no edema, pulses present Neurological: normal sensation, moves all 4 limbs Psychiatric: normal affect, A&O x 3 Skin: no rash, normal turgor Dx/Plan (1) Chronic pancreatitis Code(s): K86.1 - OTHER CHRONIC PANCREATITIS Status: Acute Qualifiers: Pancreatitis type: other Qualified Code(s): K86.1 - Other chronic pancreatitis (2) Cystic fibrosis Code(s): E84.9 - CYSTIC FIBROSIS, UNSPECIFIED Status: Acute (3) Hx of splenectomy Code(s): Z90.81 - ACQUIRED ABSENCE OF SPLEEN Status: Acute (4) Intractable abdominal pain Code(s): R10.9 - UNSPECIFIED ABDOMINAL PAIN Status: Acute (5) Nausea & vomiting Code(s): R11.2 - NAUSEA WITH VOMITING, UNSPECIFIED Status: Acute - Plan Plan: Intractable Abdominal Pain & Nausea/Vomiting, improving A- Resolved. Likely related to subclinical pancreatitis in pt w/ Hx of CF and chronic pancreatitis. Hx of [place] procedure. Lipase 69-> 21, CT abd/pelvis @ [facility] negative for acute findings report requested. Dr. Cole, pt's GI physician consulted, appreciate recs P- DC ivf -stable for DC Hx of chronic pancreatitis -GI consult, appreciate recs. Dr. Cole follows patient. hx of partial pancreas surgically removed. added PPI therapy Leukocytosis, Thrombocytosis - improving -Hx of splenectomy - reportedly chronic per pt. Improving. Hx of Cystic Fibrosis -denies fever or cough VTE: SCD and frequent ambulation Code: Full PCP: [facility] Addendum - Attending - Attending Attestation Date/Time: 12/19/19 4432 I personally evaluated the patient and discussed the management with Dr. Hodgson. I agree with the History, Examination, Assessment and Plan documented above with any addition or exceptions noted below. Doing well, stable for discharge.
== END 2019-12-19 11:55 | disposition home or self-care (01) | DRG 439 ==
LOC: ERS 12:11 → T4-A 17:27 → OBSVTOIN 17:27
PROVIDERS: ADMIT Family Medicine; ATTEND Family Medicine
DX: K85.90 Acute pancreatitis without necrosis or infection, unspecified (principal); E84.9 Cystic fibrosis, unspecified; D72.828 Other elevated white blood cell count; K86.1 Other chronic pancreatitis; D47.3 Essential (hemorrhagic) thrombocythemia; Z90.49 Acquired absence of other specified parts of digestive tract; Z90.81 Acquired absence of spleen
CPT/HCPCS: 36415; 80053; 80076; 81003; 82150; 83690; 85025; 96361; 96365; 96375; 96376; J1885; J2405; J2550; J3010; Q0162

== ENCOUNTER 2020-08-05 15:03 | Emergency (ER) | payer OTHER ==
[2020-08-06 01:35] LABS: SARS-CoV-2 MS2 Positive; SARS-CoV-2 N Gene Negative; SARS-CoV-2 S Gene Negative; SARS-CoV-2 by NAA Not Detected (NotDetected); SARS-CoV-2 orf1ab Negative
== END 2020-08-05 16:21 | disposition home or self-care (01) ==
LOC: ERS 15:03
DX: R05 Cough (principal); R09.81 Nasal congestion; Z20.828 Contact with and (suspected) exposure to other viral communicable diseases
CPT/HCPCS: 87635; 99283; U0003